=== PATIENT | female | born 1955 | race Caucasian/White ===

== ENCOUNTER → 2018-02-14 | Day surgery (SDC) | payer OTHER ==
[2018-02-09 14:00] LABS: BASOPHILS % 0.3 % (0.0-1.0); EOSINOPHILS # (AUTO) 0.1 (0.0-0.4); EOSINOPHILS % 1.3 % (0.0-6.0); HEMOGLOBIN 14.5 g/dL (12.0-16.0); LYMPHOCYTES # (AUTO) 2.2 (1.0-3.2); LYMPHOCYTES % 25.3 % (18.0-39.1); MEAN CORPUSCULAR HEMOGLOBIN 33.6 pg (28-32); MEAN CORPUSCULAR HGB CONC 34.5 g/dL (31-35); MEAN CORPUSCULAR VOLUME 97.4 fL (81-99); MONOCYTES # (AUTO) 0.5 (0.2-0.8); NEUTROPHILS # (AUTO) 5.7 (2.1-6.9); NEUTROPHILS % 66.4 % (38.7-80.0); PLATELET COUNT 245 x10e3/uL (140-360); RED BLOOD COUNT 4.31 x10e6/uL (3.6-5.1); RED CELL DISTRIBUTION WIDTH 11.7 % (11.7-14.4)
[~2018-02-14] MED LIST: AMITRIPTYLINE H10 MG PO; BIOTIN2500 MCG PO; BUPIVACAINE HCL 0.5% INJ 30 ML VIAL INJ ONE; CARAFATE PO; CARAFATE1 GM/10 ML PO; CEFAZOLIN SOD 1 GM/D5W 50ML 50 ML IV ONE; DEXAMETHASONE SOD PHOS INJ 4 MG/ML VIAL ONE; FENTANYL CITRATE/PF 100MCG/2 ML INJ ONE; LEVOTHYROXINE88 MCG PO; LIALDA1.2 GM PO; LIDOCAINE HCL 2% LOCAL INJ 5 ML SDV VIAL INJ ONE; LIPITOR20 MG PO; LOSARTAN POTASS25 MG PO; METOCLOPRAMIDE HCL 10 MG/2ML VIAL ONE; NEOMYCIN/POLYMYXIN/BACITRACIN 15 GM TUBE TOP SCH; NORCO 10-325 T1 EACH PO; ONDANSETRON HCL INJ 2 MG/ML VIAL ONE; PANTOPRAZOLE SO40 MG PO; PLAVIX75 MG PO; POTASSIUM CITR10 MEQ PO; PROPOFOL IV EMULSION 10 MG/ML 20 ML VIAL ONE; SEVOFLURANE INHAL SOLN 250 ML PEN BTL ONE; VITAMIN B 12 PO; VITAMIN D1000 UNI1 PO
--- OUTSIDE RECORDS SUMMARY | 2018-02-14 10:34 | XMS REPORT | Continuity of Care Document ---
Author Author [facility] Interface Address Unknown Phone Unavailable Problems Problem Status Onset Date Classification Date Reported Comments Source FOLLOW UP Active 12/01/2017 [facility] NASUSEA VOMITING CHRONIC ULCERATIVE Active 09/28/2017 [facility] BDDC-NAUSEA Active 06/16/2017 [facility] F/U Active 06/09/2017 [facility] BDDC/ K31.84 GASTROPARESIS; K63.89 OTHER Active 12/30/2015 [facility] BDDC/ K31.84 GASTROPARESIS; K 63.89 OTHE Active 12/30/2015 [facility] ULCERITIVE COLITIS Active 12/28/2015 [facility] Ulcerative colitis Active Problem 06/19/2017 [facility] IBD (<span ID="[id number]">Confirmed</span>) Active Problem 06/19/2017 [facility] Arthritis Active Problem 06/19/2017 [facility] Medications Medication Details Route Status Patient Instructions Ordering Provider Order Date Source pantoprazole 40 mg oral enteric coated tablet 40 mg=1 tab, PO, Daily, # 90 tab, 3 Refill(s), Pharmacy: [facility] Active 06/16/2017 [facility] GoLYTELY oral powder for reconstitution See Instructions, Take as directed by physician., # 1 ea, 0 Refill(s), Pharmacy: [facility] Active 06/16/2017 [facility] levothyroxine 100 mcg (0.1 mg) oral tablet 100 microgram=1 tab, PO, Daily, # 30 tab, 0 Refill(s) Active 06/16/2017 [facility] Lialda 1.2 g oral enteric coated tablet 2.4 gm=2 tab, PO, Daily, # 180 tab, 3 Refill(s), Pharmacy: [facility] Active 01/10/2017 [facility] Reglan 10 mg oral tablet 10 mg=1 tab, PO, Daily, X 30 day, # 30 tab, 5 Refill(s), Pharmacy: [facility] Active 01/10/2017 [facility] Plavix 75 mg oral tablet 75 mg=1 tab, PO, Daily, # 30 tab, 0 Refill(s) Active 01/10/2017 [facility] Robaxin-750 oral tablet 1,500 mg=2 tab, PO, TID, # 42 tab, 0 Refill(s) Active 01/10/2017 [facility] pantoprazole 40 MG Enteric Coated Tablet [Protonix] 40 mg=1 tab, PO, Daily, # 30 tab, 4 Refill(s), Pharmacy: [facility] Active 02/19/2016 [facility] EnteraGabecca [place], See Instructions, Samples given in clinic on 02/17/16. Lot [id number], expt. date 09/21, # 1 box, Refill(s) 0, given to patient Active 02/17/2016 [facility] atorvastatin 20 MG Oral Tablet [Lipitor] 20 mg=1 tab, PO, Daily, 0 Refill(s) Active 12/30/2015 [facility] Acetaminophen 325 MG / Hydrocodone Bitartrate 10 MG Oral Tablet [[place] 10/325] 1 tab, PO, Q6H, 0 Refill(s) Active 12/30/2015 [facility] omeprazole 20 mg oral delayed release capsule 20 mg=1 cap, PO, Daily, 0 Refill(s) Active 12/30/2015 [facility] clopidogrel 75 MG Oral Tablet [Plavix] 75 mg=1 tab, PO, Daily, 0 Refill(s) Active 12/30/2015 [facility] valsartan 160 mg oral tablet 160 mg=1 tab, PO, Daily, 0 Refill(s) Active 12/30/2015 [facility] Chlordiazepoxide Hydrochloride 5 MG / Clidinium bromide 2.5 MG Oral Capsule [Librax] 2 cap, PO, QID-Before Meals, 0 Refill(s) Active 12/30/2015 [facility] Sucralfate 1000 MG Oral Tablet [Carafate] 1 gm=1 tab, PO, QID-Before Meals, # 120 tab, 0 Refill(s) Active 12/30/2015 [facility] mesalamine 1200 MG Enteric Coated Tablet [Lialda] 2.4 gm=2 tab, PO, Daily, 0 Refill(s) Active 12/30/2015 [facility] potassium chloride 10 mEq oral capsule, extended release 10 mEq=1 cap, PO, BID, 0 Refill(s) Active 12/30/2015 [facility] Vitamin B 12 0 Refill(s) Active 12/30/2015 [facility] Estradiol 0.1 MG/ML Vaginal Cream [Estrace] See Instructions, Insert 2-4 gm vaginally at bedtime nightly x 2 weeks then reduce dose, # 1 tube, 3 Refill(s) Active 12/30/2015 [facility] Methocarbamol 750 MG Oral Tablet [Robaxin] 1,500 mg=2 tab, PO, TID, 0 Refill(s) Active 12/30/2015 [facility] amitriptyline 10 mg oral tablet 10 mg=1 tab, PO, Bedtime, 0 Refill(s) Active 12/30/2015 [facility] promethazine 25 mg oral tablet 25 mg=1 tab, PO, Q6H, 0 Refill(s) Active 12/30/2015 [facility] Ondansetron 8 MG Oral Tablet [Zofran] 8 mg=1 tab, PO, BID, 0 Refill(s) Active 12/30/2015 [facility] pantoprazole 40 mg oral granule =1 Pack, PO, Daily, # 30 ea, 0 Refill(s) Active 12/30/2015 [facility] Allergies, Adverse Reactions, Alerts Substance Category Reaction Severity Reaction type Status Date Reported Comments Source Cipro Assertion Drug allergy Active [facility] Macrodantin Assertion Drug allergy Active [facility] Percodan Assertion Drug allergy Active [facility] sulfa drugs Assertion Drug allergy Active [facility] Immunizations Immunization Date Given Site Status Last Updated Comments Source Results Order Name Results Value Reference Range Date Interpretation Comments Source Vital Signs Vital Sign Value Date Comments Source BMI Calculated 21.5 06/16/2017 [facility] Weight 56.818 06/16/2017 [facility] Respitory Rate 16 06/16/2017 [facility] Heart Rate 65 06/16/2017 [facility] Height 162.56 cm 06/16/2017 [facility] Systolic (mm Hg) 103 06/16/2017 [facility] Diastolic (mm Hg) 68 06/16/2017 [facility] Weight 57.727 01/10/2017 [facility] Height 162.56 cm 01/10/2017 [facility] BMI Calculated 21.84 01/10/2017 [facility] Systolic (mm Hg) 116 01/10/2017 [facility] Diastolic (mm Hg) 78 01/10/2017 [facility] Heart Rate 66 01/10/2017 [facility] Respitory Rate 16 01/10/2017 [facility] Weight 56.909 03/29/2016 [facility] BMI Calculated 21.55 03/29/2016 [facility] Height 162.5 cm 03/29/2016 [facility] Heart Rate 59 03/29/2016 [facility] Systolic (mm Hg) 129 03/29/2016 [facility] Diastolic (mm Hg) 78 03/29/2016 [facility] Heart Rate 61 02/17/2016 [facility] Temperature Oral (F) 99.2 F 02/17/2016 [facility] Height 162.56 cm 02/17/2016 [facility] Weight 57.955 02/17/2016 [facility] BMI Calculated 21.93 02/17/2016 [facility] Systolic (mm Hg) 125 02/17/2016 [facility] Diastolic (mm Hg) 76 02/17/2016 [facility] BMI Calculated 23.52 12/30/2015 [facility] Weight 60.227 12/30/2015 [facility] Height 160.02 cm 12/30/2015 [facility] Systolic (mm Hg) 137 12/30/2015 [facility] Diastolic (mm Hg) 82 12/30/2015 [facility] Temperature Oral (F) 97.9 F 12/30/2015 [facility] Heart Rate 65 12/30/2015 [facility] Encounters Location Location Details Encounter Type Encounter Number Reason For Visit Attending Provider ADM Date DC Date Status Source [facility] Outpatient [id number] Pool Jha 12/30/2015 12/31/2015 [facility] Outpatient [id number] Pool Jha 01/14/2016 01/14/2016 [facility] Bedded Outpatient [id number] Pool Jha 01/19/2016 01/19/2016 [facility] Outpatient [id number] Pool Jha 02/17/2016 02/18/2016 [facility] Outpatient [id number] Pool Jha 03/29/2016 03/30/2016 [facility] Outpatient [id number] Pool Jha 01/10/2017 01/11/2017 [facility] Outpatient [id number] Pool Jha 06/16/2017 06/17/2017 [facility] Procedures Procedure Code Date Perfomer Comments Source Colonoscopy [id number] [facility] Heart procedure [id number] [facility]
--- OUTSIDE RECORDS SUMMARY | 2018-02-14 10:34 | XMS REPORT | Summary of Care ---
Author Author [facility] Organization [facility] Address Unknown Phone Unavailable Encounter SHERITA Higuera(IMMANUEL) [id number] Date(s): 12/30/15 - 12/30/15 [facility] [address] [place] [address]- [facility] [phone] Discharge Disposition: Home or Self Care Attending Physician: Pool Jha MD Vital Signs Most recent to 1 oldest [Reference Range]: Height 160.02 cm (12/30/15 12:59 PM) Temperature Oral 97.9 DegF [96.4-99.1 DegF] (12/30/15 12:59 PM) Blood Pressure 137/82 mmHg [90-140/60-90 mmHg] (12/30/15 12:59 PM) Peripheral Pulse 65 bpm Rate [60-100 bpm] (12/30/15 12:59 PM) Weight 60.227 kg (12/30/15 12:59 PM) Body Mass Index 23.52 m2 (12/30/15 12:59 PM) Problem List Condition Effective Dates Status Health Status Informant Ulcerative Active colitis(Confirmed) IBD (inflammatory Active bowel disease)(Confirmed) Arthritis(Confirmed) Active Allergies, Adverse Reactions, Alerts Substance Reaction Severity Status Cipro Active Macrodantin Active Percodan Active sulfa drugs Active Medications amitriptyline 10 mg oral tablet 10 mg=1 tab, PO, Bedtime, 0 Refill(s) Start Date: 12/30/15 Status: Ordered Carafate 1 g oral tablet 1 gm=1 tab, PO, QID-Before Meals, # 120 tab, 0 Refill(s) Start Date: 12/30/15 Status: Ordered cyanocobalamin 0 Refill(s) Start Date: 12/30/15 Status: Ordered Estrace Vaginal Cream 0.1 mg/g See Instructions, Insert 2-4 gm vaginally at bedtime nightly x 2 weeks then redu ce dose, # 1 tube, 3 Refill(s) Start Date: 12/30/15 Status: Ordered Lialda 1.2 g oral enteric coated tablet 2.4 gm=2 tab, PO, Daily, 0 Refill(s) Start Date: 12/30/15 Status: Ordered Librax 5mg-2.5 mg oral capsule 2 cap, PO, QID-Before Meals, 0 Refill(s) Start Date: 12/30/15 Status: Ordered Lipitor 20 mg oral tablet 20 mg=1 tab, PO, Daily, 0 Refill(s) Start Date: 12/30/15 Status: Ordered [place] 10/325 oral tablet 1 tab, PO, Q6H, 0 Refill(s) Start Date: 12/30/15 Status: Ordered omeprazole 20 mg oral delayed release capsule 20 mg=1 cap, PO, Daily, 0 Refill(s) Start Date: 12/30/15 Status: Ordered pantoprazole 40 mg oral granule =1 Pack, PO, Daily, # 30 ea, 0 Refill(s) Start Date: 12/30/15 Status: Ordered Plavix 75 mg oral tablet 75 mg=1 tab, PO, Daily, 0 Refill(s) Start Date: 12/30/15 Status: Ordered potassium chloride 10 mEq oral capsule, extended release 10 mEq=1 cap, PO, BID, 0 Refill(s) Start Date: 12/30/15 Status: Ordered promethazine 25 mg oral tablet 25 mg=1 tab, PO, Q6H, 0 Refill(s) Start Date: 12/30/15 Status: Ordered Robaxin-750 oral tablet 1,500 mg=2 tab, PO, TID, 0 Refill(s) Start Date: 12/30/15 Status: Ordered valsartan 160 mg oral tablet 160 mg=1 tab, PO, Daily, 0 Refill(s) Start Date: 12/30/15 Status: Ordered Zofran 8 mg oral tablet 8 mg=1 tab, PO, BID, 0 Refill(s) Start Date: 12/30/15 Status: Ordered Results No data available for this section Immunizations No data available for this section Procedures Procedure Date Related Diagnosis Body Site Colonoscopy Heart procedure Social History Social History Type Response Smoking Status Former smoker; Exposure to Tobacco Smoke None; Cigarette Smoking Last 365 Days No; Reg Smoking Cessation Counseling No Assessment and Plan No data available for this section
--- OUTSIDE RECORDS SUMMARY | 2018-02-14 10:34 | XMS REPORT | Summary of Care ---
Author Author [facility] Organization [facility] Address Unknown Phone Unavailable Encounter HQ Davida(IMMANUEL) [id number] Date(s): 01/14/16 - 01/14/16 [facility] [address] [place] [address] [phone] Discharge Disposition: Home or Self Care Attending Physician: Pool Jha MD Referring Physician: Pool Jha MD Vital Signs No data available for this section Problem List Condition Effective Dates Status Health Status Informant Ulcerative Active colitis(Confirmed) IBD (inflammatory Active bowel disease)(Confirmed) Arthritis(Confirmed) Active Allergies, Adverse Reactions, Alerts Substance Reaction Severity Status Cipro Active Macrodantin Active Percodan Active sulfa drugs Active Medications No data available for this section Results No data available for this section [...]
--- OUTSIDE RECORDS SUMMARY | 2018-02-14 10:34 | XMS REPORT | Summary of Care ---
Author Author [facility] Organization [facility] Address Unknown Phone Unavailable Encounter SHERITA Higuera(IMMANUEL) [id number] Date(s): 01/19/16 - 01/19/16 [facility] [address] [place] [address] Discharge Disposition: Home or Self Care Attending [...] Smoking Cessation Counseling No Assessment and Plan Extracted from: Title: Ingestion of Smart Pill Author: Destiney Woody RN Date: 01/19/16 Patient was here for ingestion of Smart Pill for GI transit study. NPO status verified. The patient stated that they had no allergies to the ingredients in the meal/bar provided. Patient did not take any GI altering medications. Pt identified using name, , and procedure verification. Patient was instructed to eat the meal/bar provided in 15 minutes. Patient ingested the meal without difficulty. The patient was shown the capsule/smart pill to swallow and the capsule/smart pill was swallowed without difficulty. The patient agreed to not eat anything for 6 hours. Diary was provided and written instructions given on how to keep the diary and when to push event button. Written instructions included all needed information. The patient confirmed that they were aware not to have an MRI unless it is confirmed the pill has exited the body. Our phone number was provided for questions and concerns. Patient was instructed to return the monitor to the [facility]DC on listed date. Patient verbalized understanding of all instructions [id number] Pressure Christ Code__HA5 dk6
--- OUTSIDE RECORDS SUMMARY | 2018-02-14 10:34 | XMS REPORT | Summary of Care ---
Author Author [facility] Organization [facility] Address Unknown Phone Unavailable Encounter SHERITA Higuera(IMMANUEL) [id number] Date(s): 03/29/16 - 03/29/16 [facility] [address] [place] [address]- [facility] [phone] Discharge Disposition: Home or Self Care Attending Physician: Pool Jha MD Referring Physician: Pool Jha MD Vital Signs Most recent to 1 oldest [Reference Range]: Height 162.5 cm (03/29/16 1:27 PM) Blood Pressure 129/78 mmHg [90-140/60-90 mmHg] (03/29/16 1:27 PM) Peripheral Pulse 59 bpm Rate [60-100 bpm] *LOW* (03/29/16 1:27 PM) Weight 56.909 kg (03/29/16 1:27 PM) Body Mass Index 21.55 m2 (03/29/16 1:27 PM) Problem List Condition Effective Dates Status Health Status Informant Ulcerative Active colitis(Confirmed) IBD (inflammatory Active bowel disease)(Confirmed) Arthritis(Confirmed) Active Allergies, Adverse Reactions, Alerts Substance Reaction Severity Status Cipro Active Macrodantin Active Percodan Active sulfa drugs Active Medications No Known Medications Results No data available for this section [...]
--- OUTSIDE RECORDS SUMMARY | 2018-02-14 10:34 | XMS REPORT | Summary of Care ---
Author Author [facility] Organization [facility] Address Unknown Phone Unavailable Encounter SHERITA Higuera(IMMANUEL) [id number] Date(s): 02/17/16 - 02/17/16 [facility] [address] [place] [address]- [facility] [phone] Discharge Disposition: Home or Self Care Attending Physician: Pool Jha MD Referring Physician: Pool Jha MD Vital Signs Most recent to 1 oldest [Reference Range]: Height 162.56 cm (02/17/16 1:03 PM) Temperature Oral 99.2 DegF [96.4-99.1 DegF] *HI* (02/17/16 1:03 PM) Blood Pressure 125/76 mmHg [90-140/60-90 mmHg] (02/17/16 1:03 PM) Peripheral Pulse 61 bpm Rate [60-100 bpm] (02/17/16 1:03 PM) Weight 57.955 kg (02/17/16 1:03 PM) Body Mass Index 21.93 m2 (02/17/16 1:03 PM) Problem List Condition Effective Dates Status Health Status Informant Ulcerative Active colitis(Confirmed) IBD (inflammatory Active bowel disease)(Confirmed) Arthritis(Confirmed) Active Allergies, Adverse Reactions, Alerts Substance Reaction Severity Status Cipro Active Macrodantin Active Percodan Active sulfa drugs Active Medications EnteraGam EnteraGam, See Instructions, Samples given in clinic on 02/17/16. Lot [id number], e xpt. date 09/21, # 1 box, Refill(s) 0, given to patient Start Date: 02/17/16 Status: Ordered Protonix 40 mg oral enteric coated tablet 40 mg=1 tab, PO, Daily, # 30 tab, 4 Refill(s), Pharmacy: [facility] Start Date: 02/19/16 Stop Date: 07/18/16 Status: Ordered Results No data available for [...]
--- OUTSIDE RECORDS SUMMARY | 2018-02-14 10:35 | XMS REPORT | Summary of Care ---
Author Author [facility] Organization [facility] Address Unknown Phone Unavailable Encounter SHERITA Higuera(IMMANUEL) [id number] Date(s): 06/16/17 - 06/16/[address] [facility] [place] [address] [place] [address]- [facility] [phone] Discharge Disposition: Home or Self Care Attending Physician: Pool Jha MD Referring Physician: Pool Jha MD Vital Signs Most recent to 1 oldest [Reference Range]: Height 162.56 cm (06/16/17 9:10 AM) Blood Pressure 103/68 mmHg [90-140/60-90 mmHg] (06/16/17 9:10 AM) Respiratory Rate 16 BRMIN [14-20 BRMIN] (06/16/17 9:10 AM) Peripheral Pulse 65 bpm Rate [60-100 bpm] (06/16/17 9:10 AM) Weight 56.818 kg (06/16/17 9:10 AM) Body Mass Index 21.5 m2 (06/16/17 9:10 AM) Problem List Condition Effective Dates Status Health Status Informant Ulcerative Active colitis(Confirmed) IBD (inflammatory Active bowel disease)(Confirmed) Arthritis(Confirmed) Active Allergies, Adverse Reactions, Alerts Substance Reaction Severity Status sulfa drugs Active Cipro Active Macrodantin Active Percodan Active Medications GoLYTELY oral powder for reconstitution See Instructions, Take as directed by physician., # 1 ea, 0 Refill(s), Pharmacy: [facility] Start Date: 06/16/17 Status: Ordered levothyroxine 100 mcg (0.1 mg) oral tablet 100 microgram=1 tab, PO, Daily, # 30 tab, 0 Refill(s) Start Date: 06/16/17 Status: Ordered pantoprazole 40 mg oral enteric coated tablet 40 mg=1 tab, PO, Daily, # 90 tab, 3 Refill(s), Pharmacy: [facility] Start Date: 06/16/17 Status: Ordered Results No data available for this section Immunizations No data available for this section Procedures Procedure Date Related Diagnosis Body Site Status Colonoscopy Completed Heart procedure Completed Social History Social History Type Response Smoking Status Former smoker; Exposure to Tobacco Smoke None; Cigarette Smoking Last 365 Days No; Reg Smoking Cessation Counseling No entered on: 06/16/17 Assessment and Plan No data available for this section
--- OUTSIDE RECORDS SUMMARY | 2018-02-14 10:35 | XMS REPORT | Summary of Care ---
Author Author [facility] Organization [facility] Address Unknown Phone Unavailable Encounter SHERITA Higuera(IMMANUEL) [id number] Date(s): 01/10/17 - 01/10/17 [facility] [address] [place] [address]- [facility] [phone] Discharge Disposition: Home or Self Care Attending Physician: Pool Jha MD Referring Physician: Pool Jha MD Vital Signs Most recent to 1 oldest [Reference Range]: Height 162.56 cm (01/10/17 1:24 PM) Blood Pressure 116/78 mmHg [90-140/60-90 mmHg] (01/10/17 1:24 PM) Respiratory Rate 16 BRMIN [14-20 BRMIN] (01/10/17 1:24 PM) Peripheral Pulse 66 bpm Rate [60-100 bpm] (01/10/17 1:24 PM) Weight 57.727 kg (01/10/17 1:24 PM) Body Mass Index 21.84 m2 (01/10/17 1:24 PM) Problem List Condition Effective Dates Status Health Status Informant Ulcerative Active colitis(Confirmed) IBD (inflammatory Active bowel disease)(Confirmed) Arthritis(Confirmed) Active Allergies, Adverse Reactions, Alerts Substance Reaction Severity Status Cipro Active Macrodantin Active Percodan Active sulfa drugs Active Medications Lialda 1.2 g oral enteric coated tablet 2.4 gm=2 tab, PO, Daily, # 180 tab, 3 Refill(s), Pharmacy: [facility] Start Date: 01/10/17 Stop Date: 01/05/18 Status: Ordered Plavix 75 mg oral tablet 75 mg=1 tab, PO, Daily, # 30 tab, 0 Refill(s) Start Date: 01/10/17 Status: Ordered Reglan 10 mg oral tablet 10 mg=1 tab, PO, Daily, X 30 day, # 30 tab, 5 Refill(s), Pharmacy: [facility] Start Date: 01/10/17 Stop Date: 07/09/17 Status: Ordered Robaxin-750 oral tablet 1,500 mg=2 tab, PO, TID, # 42 tab, 0 Refill(s) Start Date: 01/10/17 Stop Date: 01/17/17 Status: Ordered Results No data available for [...]
--- NOTE | 2018-02-14 13:22 | Operative Report ---
DATE OF PROCEDURE: February 14, 2018 PREOPERATIVE DIAGNOSIS: Deep soft-tissue mass, right midback. POSTOPERATIVE DIAGNOSIS: Deep soft-tissue mass, right midback. PROCEDURE PERFORMED: Excision of deep soft-tissue mass from the right midback 6 cm. PACKAGE COLLECTOR: None. ANESTHESIA: General. INDICATIONS AND FINDINGS: The patient is a 62-year-old female who presented with complaints of a mass on her back that has increased in size. At surgery there was a mass in the right midback. It was beneath the superficial fascia, extended down into the muscle, which was about 6 cm in diameter, well circumscribed, appeared to be a lipoma. TECHNIQUE: After adequate general endotracheal anesthesia with patient in the [id number] position, the right midback was prepped and draped in sterile fashion with ChloraPrep solution. Transverse incision was made over the area of the mass, carried down through the subcutaneous tissue and the superficial fascia until the mass was identified. The mass was fatty tumor. It was completely excised from the surrounding tissues, found to extend down into the muscle. The mass was completely removed intact. Hemostasis was achieved with electrocautery. The wound was irrigated with saline. It was then infiltrated with 1/2 percent Marcaine. The wound was then closed with 3-0 Vicryl in the subcutaneous tissue and 4-0 Vicryl subcuticular to the skin. Dermabond and a sterile dressing were applied. The patient tolerated the procedure well. Estimated blood loss was less than 5 mL. There were no complications. All counts were correct. The patient was taken to the recovery room in satisfactory condition. Job#: [id number] cc:ANABELLA STEPHENS MD
[2018-02-14 14:30] VITALS: BP 132/80
== END | disposition home or self-care (01) ==
LOC: OR 10:31
PROVIDERS: ATTEND Surgery
DX: D17.9 Benign lipomatous neoplasm, unspecified (principal); J06.9 Acute upper respiratory infection, unspecified; I10 Essential (primary) hypertension; K44.9 Diaphragmatic hernia without obstruction or gangrene; K51.90 Ulcerative colitis, unspecified, without complications; Z88.6 Allergy status to analgesic agent; Z88.1 Allergy status to other antibiotic agents; Z88.2 Allergy status to sulfonamides; Z01.810 Encounter for preprocedural cardiovascular examination; Z01.812 Encounter for preprocedural laboratory examination; Z79.02 Long term (current) use of antithrombotics/antiplatelets; Z95.820 Peripheral vascular angioplasty status with implants and grafts
CPT/HCPCS: 21933; 36415; 85025; 88304; 93005; J0690; J1100; J2001; J2405; J2704; J2765

== ENCOUNTER → 2019-12-30 | Day surgery (SDC) | payer MEDICARE, OTHER ==
[2019-12-26 10:10] LABS: BASOPHILS # (AUTO) 0.1 (0.0-0.1); BASOPHILS % 0.5 % (0.0-1.0); EOSINOPHILS # (AUTO) 0.1 (0.0-0.4); EOSINOPHILS % 0.7 % (0.0-6.0); HEMATOCRIT 41.4 % (34.2-44.1); LYMPHOCYTES # (AUTO) 1.7 (1.0-3.2); MEAN CORPUSCULAR HEMOGLOBIN 33.3 pg (28-32); MEAN CORPUSCULAR HGB CONC 33.8 g/dL (31-35); MEAN CORPUSCULAR VOLUME 98.3 fL (81-99); MONOCYTES # (AUTO) 0.6 (0.2-0.8); MONOCYTES % 5.7 % (4.4-11.3); NEUTROPHILS # (AUTO) 7.7 (2.1-6.9); NEUTROPHILS % 75.5 % (38.7-80.0); PLATELET COUNT 243 x10e3/uL (140-360); RED BLOOD COUNT 4.21 x10e6/uL (3.6-5.1); RED CELL DISTRIBUTION WIDTH 12.6 % (11.7-14.4)
[~2019-12-30] MED LIST changes: +ARMOUR THYROID60 MG PO; -BUPIVACAINE HCL 0.5% INJ 30 ML VIAL INJ ONE; -CEFAZOLIN SOD 1 GM/D5W 50ML 50 ML IV ONE; -DEXAMETHASONE SOD PHOS INJ 4 MG/ML VIAL ONE; +DOMPERIDONE; +METOPROLOL SUCC25 MG; -NEOMYCIN/POLYMYXIN/BACITRACIN 15 GM TUBE TOP SCH; -ONDANSETRON HCL INJ 2 MG/ML VIAL ONE; -SEVOFLURANE INHAL SOLN 250 ML PEN BTL ONE
[2019-12-30 14:50] VITALS: BP 125/78
--- NOTE | 2019-12-30 19:16 | Operative Report ---
DATE OF PROCEDURE: 12/30/2019 SURGEON: Jason Yao MD PROCEDURE: EGD with biopsies. INDICATIONS FOR EGD: Postprandial bloating, nausea. History of pyloric channel stricture. MEDICATIONS: The patient was done under MAC, please see anesthesiologist's note. PROCEDURE IN DETAIL: With the patient in left lateral decubitus position, a flexible fiberoptic Olympus gastroscope was introduced into the esophagus under direct visualization without any difficulty. The esophagus appeared to be within normal limits. The scope was then advanced with ease into the stomach, traversing a small sliding hiatal hernia. Mucosa overlying the antrum and the body revealed some patchy erythema and [id number] edema, and biopsies were obtained, sent to stain for H. pylori. Pylorus was of normal contour and shape, it was intubated with ease and the scope was advanced all the way to the second portion of the duodenum. Biopsies were obtained from the proximal second portion and duodenal bulb to rule out sprue. The scope was then withdrawn back into the stomach and retroflexed, mucosa overlying the fundus and the cardia appeared to be within normal limits. The scope was then straightened out, it was subsequently withdrawn. The patient tolerated the procedure well. IMPRESSION: 1. Normal esophagus. 2. Small sliding hiatal hernia. 3. Gastritis, biopsied, biopsies sent to stain for H. pylori. 4. Rule out sprue. PLAN: 1. Follow up histology. 2. Increase Protonix to 40 mg one p.o. a.c. b.i.d. and if the patient persists with bloating, we will consider increasing domperidone to 10 mg one p.o. a.c. t.i.d. and at bedtime. Jason Yao MD [facility] [place] /[id number] cc: Kendrick Nunez MD
== END | disposition home or self-care (01) ==
LOC: OR 12:15
PROVIDERS: ATTEND Internal Medicine Gastroenterology
DX: K31.84 Gastroparesis (principal); K29.50 Unspecified chronic gastritis without bleeding; K44.9 Diaphragmatic hernia without obstruction or gangrene; K51.90 Ulcerative colitis, unspecified, without complications; D72.820 Lymphocytosis (symptomatic); Z88.1 Allergy status to other antibiotic agents; Z88.2 Allergy status to sulfonamides; Z88.8 Allergy status to other drugs, medicaments and biological substances; Z01.810 Encounter for preprocedural cardiovascular examination; Z01.812 Encounter for preprocedural laboratory examination; Z11.59 Encounter for screening for other viral diseases; Z79.02 Long term (current) use of antithrombotics/antiplatelets
CPT/HCPCS: 36415; 43239; 85025; 93005; J2001; J2704; J2765; J3010; U0002